=== PATIENT | female | born 1950 | race Caucasian/White ===

== ENCOUNTER 2017-10-29 09:31 | Inpatient (IN) | payer OTHER ==
[2017-10-26 14:03] VITALS: BMI 20.5
--- NOTE | 2017-10-29 07:06 | HP ---
Admitting History and Physical - Admission Chief Complaint: left hip osteoarthritis x years History of Present Illness: 66-year-old female presents in regard to her left hip. Patient has a long- standing history of osteoarthritis. Patient complains of pain, limited range of motion, difficulty ambulating, and difficulties with activities of daily living. Patient has failed conservative treatment options including PO medications, injections, activity modification and exercise program. As patient has failed conservative treatment measures, patient would like to proceed with surgical intervention, left total hip arthroplasty MAKOplasty. History Source: Patient - Past Surgical History Additional Past Surgical History: see written history and physical. - Smoking History Smoking history: Former smoker Have you smoked in the past 12 months: No Aproximately how many cigarettes per day: 20 If you are a former smoker, when did you quit?: 2007 - Alcohol/Substance Use Hx Alcohol Use: Yes (RECOVERY SINCE 05/18) Home Medications - Allergies Allergies/Adverse Reactions: Allergies Allergy/AdvReac Type Severity Reaction Status Date / Time codeine AdvReac Severe Nausea AND Verified 10/26/17 13:48 VOMITTING - Home Medications Home Medications: Ambulatory Orders NK [No Known Home Medication] 10/26/17 Review of Systems - Review of Systems Musculoskeletal: reports: Decreased ROM (left hip), Joint Pain (left hip) Physical Examination Constitutional: Yes: Well Nourished, No Distress Eyes: Yes: Conjunctiva Clear HENT: Yes: Atraumatic, Normocephalic Neck: Yes: Supple Cardiovascular: Yes: Regular Rate and Rhythm Respiratory: Yes: Regular Gastrointestinal: Yes: Soft ...Rectal Exam: Yes: Deferred Musculoskeletal: Yes: Joint Stiffness (left hip), Joint Swelling (left hip) Assessment/Plan 66-year-old female presents in regard to her left hip. Patient has a long- standing history of osteoarthritis. Patient complains of pain, limited range of motion, difficulty ambulating, and difficulties with activities of daily living. Patient has failed conservative treatment options including PO medications, injections, activity modification and exercise program. As patient has failed conservative treatment measures, patient would like to proceed with surgical intervention, left total hip arthroplasty MAKOplasty. pros, cons, risks , benefits and alternatives of a left total hip arthroplasty were discussed with the patient at length. Patient confirms her understanding, and consents to proceed with a left total hip arthroplasty, MAKOplasty.
[~2017-10-29 09:31] MED LIST: CEFAZOLIN 1 GM/D5W 1 GRAM/50 ML BAG IVPB ONE; ROPIVICAINE 0.2%/MORPH PF/KETOROLAC - 51ML DISP.SYRINGE IA ONE; TRANEXAMIC ACID 1000 MG/10 ML VIAL IVPUSH ONE
[2017-10-29] MEDS ORDERED: MIDAZOLAM HCL 2 MG/2 ML SINGLE DOSE VIAL ONE ×2 (09:50→12:39)
[2017-10-29] MEDS ORDERED: ROPIVACAINE HCL 0.5% 30ML VIAL ONE (09:50)
[2017-10-29] MEDS ORDERED: SODIUM CHLORIDE 0.9% P/F 10 ML VIAL IJ ONE ×2 (09:53→09:54)
[2017-10-29] MEDS: CELECOXIB 200 MG CAPSULE PO ONE ×2 (10:30→19:10)
[2017-10-29] MEDS: GABAPENTIN 300 MG CAPSULE (FP) PO ONE ×2 (10:30→19:10)
[2017-10-29] MEDS: oxyCODONE HCL 10 MG SUSTAINED ACTING TABLET PO ONE ×2 (10:30→19:10)
[2017-10-29] MEDS: PANTOPRAZOLE 40 MG TABLET (FP) PO ONE ×2 (10:31→19:12)
[2017-10-29] MEDS ORDERED: ceFAZolin SODIUM 1 GM VIAL ONE ×2 (10:37→11:55)
[2017-10-29] MEDS ORDERED: VANCOMYCIN 1,000 MG VIAL (RESTRICTED TO ID ONLY) ONE (10:39)
[2017-10-29] MEDS ORDERED: TRANEXAMIC ACID 1000 MG/10 ML VIAL ONE (11:55)
[2017-10-29] MEDS ORDERED: PROPOFOL 20 ML ONE (12:25)
[2017-10-29] MEDS ORDERED: TRANEXAMIC ACID 1000 MG/10 ML VIAL IVPB ONE (13:01)
[2017-10-29] MEDS ORDERED: VANCOMYCIN 1,000 MG VIAL (RESTRICTED TO ID ONLY) IVPB ONE (13:02)
[2017-10-29] MEDS ORDERED: ROPIVICAINE 0.2%/MORPH PF/KETOROLAC - 51ML DISP.SYRINGE IA ONE (13:03)
[2017-10-29] MEDS ORDERED: ePHEDrine SULFATE 50 MG/1 ML AMPULE ONE (13:08)
[2017-10-29] MEDS ORDERED: oxyCODONE HCL 5 MG TABLET PO PRN ×2 (15:39)
[2017-10-29] MEDS ORDERED: ONDANSETRON 4 MG/2 ML VIAL IVPUSH PRN (15:43)
[2017-10-29] MEDS ORDERED: PROMETHAZINE HCL 25 MG/1 ML VIAL IVPB PRN (15:44)
[2017-10-29] MEDS ORDERED: KETOROLAC TROMETHAMINE 30 MG/1 ML VIAL ONE (16:24)
[2017-10-29] MEDS ORDERED: ACETAMINOPHEN INJECTION 100 ML IVPB ONE (16:25)
[2017-10-29] MEDS ORDERED: traMADol HCL 50 MG TABLET ONE (16:25)
[2017-10-29] MEDS ORDERED: MAGNESIUM HYDROX 2400MG/30ML ORAL SUSPENSION 30 ML CUP PO PRN (16:26)
[2017-10-29] MEDS ORDERED: MAG HYDROX/AL HYDROX/SIMETH 30 ML UNIT-DOSE CUP PO PRN (16:26)
[2017-10-29] MEDS ORDERED: LACTATED RINGERS SOLUTION 1,000 ML IV SCH (16:30)
[2017-10-29] MEDS: traMADol HCL 50 MG TABLET PO SCH ×2 (16:35→23:35)
[2017-10-29] MEDS: KETOROLAC TROMETHAMINE 30 MG/1 ML VIAL IVPUSH SCH ×2 (16:35→23:34)
--- NOTE | 2017-10-29 16:36 | OP ---
Operative Note - Note: Operative Date: 10/29/17 Pre-Operative Diagnosis: Left hip OA Operation: left TEO CHINEDU Post-Operative Diagnosis: Same as Pre-op Surgeon: Carlos Burks Lane Marker Installer: Monika Potter Anesthesia: Spinal Estimated Blood Loss (mls): 200
[2017-10-29] MEDS ORDERED: ACETAMINOPHEN 1000 MG/100 ML VIAL (NON FORMULARY) IVPB ONE (16:45)
[2017-10-29] MEDS ORDERED: ceFAZolin SODIUM 1 GM VIAL IVPB ONE (18:00)
[2017-10-29] MEDS: CEFAZOLIN 1 GM/D5W 1 GM/50 ML BAG IVPB SCH (19:00)
--- NOTE | 2017-10-29 21:07 | SPEC ---
DATE OF OPERATION: 10/29/2017 PREOPERATIVE DIAGNOSIS: Left hip osteoarthritis. POSTOPERATIVE DIAGNOSIS: Left hip osteoarthritis. PROCEDURE: Left total hip replacement with MAKOplasty robotic navigation. ATTENDING: Shanel Gonzáles MD STEWARD/STEWARDESS TOURIST CLASS: BE[facility] Ernandez ANESTHESIA: Spinal plus sedation. ESTIMATED BLOOD LOSS: 200 mL COMPLICATIONS: None. DISPOSITION: The patient was transferred to the PACU in stable condition. IMPLANTS USED: Sindy Accolade II size 4 femoral component, Sindy Tritanium 48-mm acetabular component with acetabular screws and MDM liner and bipolar head ball. INDICATIONS: This is a 66-year-old female who presented to the office complaining of severe left hip pain. She was seen and examined by Dr. Gonzáles and diagnosed with severe left hip osteoarthritis. The patient was initially treated nonoperatively with injections, medications, and physical therapy but continued to have severe pain and ambulatory dysfunction. She was, therefore, indicated for a left total hip replacement with MAKOplasty robotic navigation. The risks, benefits, and alternatives to the procedure were explained to the patient in great detail, and she elected to proceed with the surgery. On the day of surgery, the patient was taken to the OR and placed on the OR table. Spinal anesthesia was administered by the anesthesiologist. The patient was then positioned in the lateral decubitus position on the table and all bony prominences were padded. An axillary roll was placed. The operative hip was then prepped and draped in the usual sterile fashion and intravenous antibiotics were given for infection prophylaxis. A surgical time-out was then performed with the team, and the patients identity, procedure, side, availability of implants, and the administration of antibiotics were confirmed. An approximately 15-cm longitudinal incision was made through the skin centered on the greater trochanter of the hip. This dissection was carried down through the subcutaneous tissues to the deep fascia. This fascia was then incised and a Cobra was placed around the inferior femoral neck. Electrocautery was used to reflect the anterior 40% of the gluteus medius and minimus starting at the musculotendinous junction and leaving a cuff for closure. This was reflected to reveal the capsule of the hip joint. An anterior capsulectomy was performed and the femoral head and neck were visualized. Grade 4 changes were noted diffusely throughout the joint. At this point, three small stab incisions were made superior to the main incision along the iliac crest. Three self-drilling Steinmann pins were then placed and the Darrion pelvic array was attached. Reference points on the limb were then entered into the robotic device and the limb length deficiency, offset, and femoral neck resection level were then calculated by the software. The hip was then dislocated with traction and external rotation. An oscillating saw was used to make the femoral neck cut at the level previously templated, and the femoral head was removed. Attention was then turned to the acetabulum. Retractors were then placed around the acetabulum and the labrum was removed. An acetabular checkpoint pin and the Wallerius software were used to register the contours of the acetabulum. The acetabulum was then reamed in a single stage to the preoperatively templated size using the Darrion robotic arm. The appropriately sized cup was then impacted and had solid fixation as well as the preset inclination and version of 40 and 20 degrees, respectively. A polyethylene liner was then placed in the cup. Attention was then turned back to the femur, which was externally rotated for improved visualization. A femoral neck elevator was used to present the femoral neck cut, a box osteotome was used to enter the femoral canal, and a canal finder was used to go down the femoral shaft. The Darrion broaches were used sequentially until the optimal scratch fit was achieved. This correlated with the preoperatively templated size. From here, several different offset head and neck configurations were tested until excellent stability and length were obtained. These measurements were quantified using the Wallerius software. All trial components were then removed, the femur was copiously irrigated, and the final components were placed. Leg length and stability were checked again and found to be excellent. Irrigation was performed again. Wound closure was started by repairing the abductor muscles with a no. 2 FiberWire stitch in a Krackow configuration passed through bone tunnels in the greater trochanter and tied over a bony bridge. This repair was then reinforced with a 0 V-Loc 180 barbed suture. Next, no. 1 Polysorb and 0 V-Loc 180 were used to close the fascia. The deep subcutaneous tissue was closed with no. 1 Polysorb sutures, and 2-0 Polysorb was used for the superficial subcutaneous tissue. The skin was closed using both 3-0 V-Loc 90 suture in a running subcuticular fashion and SwiftSet skin adhesive. The Darrion array and pins were removed from the iliac crest and the stab incision sites were irrigated and closed with 4-0 Polysorb sutures and SwiftSet skin adhesive. Once this was completed, a sterile dressing was applied. The patient was then awakened and taken to the PACU in stable condition. ADDENDUM: After final implants were placed, a 3-minute dilute Betadine lavage was performed according to the CHAPARRAL protocol. Following this, the wound was again thoroughly irrigated with normal saline and wound closure was begun. SHANEL GONZÁLES M.D. [id number]
[2017-10-29] MEDS: GABAPENTIN 300 MG CAPSULE (FP) PO SCH (21:28)
[2017-10-29] MEDS: CELECOXIB 200 MG CAPSULE PO SCH (21:29)
[2017-10-29] MEDS: ASCORBIC ACID 500 MG TABLET (FP) PO SCH (21:29)
[2017-10-29] MEDS: oxyCODONE HCL 10 MG SUSTAINED ACTING TABLET PO SCH (21:30)
[2017-10-29] MEDS: SENNOSIDES/DOCUSATE COMBO (SENNA PLUS) TABLET (UD) PO SCH (21:31)
[2017-10-29] MEDS ORDERED: GABAPENTIN 300 MG CAPSULE (FP) PO SCH (22:00)
[2017-10-30] MEDS: CEFAZOLIN 1 GM/D5W 1 GM/50 ML BAG IVPB SCH (01:20)
[2017-10-30] MEDS: KETOROLAC TROMETHAMINE 30 MG/1 ML VIAL IVPUSH SCH ×2 (05:30→09:30)
[2017-10-30] MEDS: traMADol HCL 50 MG TABLET PO SCH ×4 (05:30→23:22)
[2017-10-30] MEDS: ONDANSETRON 4 MG/2 ML VIAL IVPUSH PRN ×2 (06:18→09:29)
--- NOTE | 2017-10-30 07:22 | SURG ---
Surgery Solar Applications Development Engineer Note Solar Applications Development Engineer: Monika Potter PA-C Date of Service: 10/29/17 Diagnosis: Left hip OA Procedure: left TEO CHINEDU I was present for the entirety of the operative procedure. For further detail, please refer to operative report. Visit type - Case Type Case Type: Scheduled Admission - Emergency Emergency Visit: No - New patient This patient is new to me today: Yes Date on this admission: 10/29/17
[2017-10-30 08:28] LABS: ANION GAP 3 (8-16); BLOOD UREA NITROGEN 19 mg/dl (7-18); CALCIUM 8.5 mg/dl (8.4-10.2); CHLORIDE 102 mmol/L (98-107); CO2 26 mmol/L (22-28); GLUCOSE,RANDOM 116 mg/dl (74-106); POTASSIUM 4.8 mmol/L (3.5-5.1); SODIUM 131 mmol/L (136-145)
[2017-10-30] MEDS: ASPIRIN 325 MG TABLET PO SCH (08:34)
[2017-10-30 09:09] LABS: HEMATOCRIT 32.6 % (32.4-45.2); HEMOGLOBIN 11.8 GM/dl (10.7-15.3); MCH 34.2 pg (25.7-33.7); MCHC 36.2 g/dl (32.0-36.0); MEAN CELL VOLUME 94.6 fl (80-96); MEAN PLT VOLUME 9.2 fl (7.5-11.1); PLATELET COUNT 202 K/MM3 (134-434); RBC 3.45 M/mm3 (3.60-5.2); RDW 13.3 % (11.6-15.6)
[2017-10-30 09:21] LABS: WHITE BLOOD COUNT 9.7 K/mm3 (4.0-10.8)
[2017-10-30] MEDS ORDERED: ONDANSETRON 4 MG/2 ML VIAL IVPUSH PRN (09:24)
[2017-10-30] MEDS: MULTIVITAMINS (DAILY MVI) TABLET (FP) PO SCH (09:29)
[2017-10-30] MEDS: GABAPENTIN 300 MG CAPSULE (FP) PO SCH ×2 (09:30→21:10)
[2017-10-30] MEDS: CELECOXIB 200 MG CAPSULE PO SCH ×2 (09:30→21:10)
[2017-10-30] MEDS: ASCORBIC ACID 500 MG TABLET (FP) PO SCH ×2 (09:30→21:09)
[2017-10-30] MEDS: PANTOPRAZOLE 40 MG TABLET (FP) PO SCH (09:30)
[2017-10-30] MEDS: SENNOSIDES/DOCUSATE COMBO (SENNA PLUS) TABLET (UD) PO SCH ×2 (09:30→21:09)
[2017-10-30] MEDS: oxyCODONE HCL 10 MG SUSTAINED ACTING TABLET PO SCH ×2 (09:30→21:09)
[2017-10-30] MEDS ORDERED: METOCLOPRAMIDE HCL INJECTION 10 MG/2 ML VIAL IVPUSH ONE (09:50)
[2017-10-30] MEDS ORDERED: DEXAMETHASONE SOD PHOSPHATE 10 MG/1 ML VIAL IVPB ONE (12:00)
[2017-10-31] MEDS: ONDANSETRON 4 MG/2 ML VIAL IVPUSH PRN (05:40)
[2017-10-31] MEDS: traMADol HCL 50 MG TABLET PO SCH ×2 (05:40→11:50)
[2017-10-31 06:36] VITALS: BP 128/89; PULSE 99; TEMP 98.5
[2017-10-31 08:12] LABS: HEMOGLOBIN 10.7 GM/dl (10.7-15.3); MCH 31.6 pg (25.7-33.7); MCHC 33.5 g/dl (32.0-36.0); MEAN CELL VOLUME 94.5 fl (80-96); MEAN PLT VOLUME 9.6 fl (7.5-11.1); PLATELET COUNT 210 K/MM3 (134-434); RBC 3.39 M/mm3 (3.60-5.2); RDW 13.5 % (11.6-15.6); WHITE BLOOD COUNT 10.4 K/mm3 (4.0-10.8)
[2017-10-31] MEDS: ASPIRIN 325 MG TABLET PO SCH (08:49)
--- NOTE | 2017-10-31 09:05 | PN ---
Progress Note (short form) - Note Progress Note: Pt seen and examined last night. Doing well. AVSS Laboratory Tests 10/30/17 10/30/17 10/31/17 07:50 07:50 07:17 WBC 9.7 10.4 Hgb 11.8 10.7 Hct 32.6 32.0 L Plt Count 202 210 Sodium 131 L Potassium 4.8 Chloride 102 Carbon Dioxide 26 Anion Gap 3 L BUN 19 H Creatinine 1.0 Random Glucose 116 H Calcium 8.5 Selected Entries 10/30/17 10/30/17 10/31/17 19:39 21:17 06:00 Temperature 98.0 F 98.5 F Pulse Rate 83 99 H Respiratory 20 18 Rate Blood Pressure 123/79 128/89 O2 Sat by Pulse 96 94 L Oximetry (%) Oxygen Delivery Room Air Room Air Method 10/31/17 07:58 Temperature Pulse Rate Respiratory Rate Blood Pressure O2 Sat by Pulse 95 Oximetry (%) Oxygen Delivery Room Air Method Gen: NAD LLE: c/d/i, NVID A/P s/p L CHINEDU Doing well PT/OOB D/C Sunday after PT; f/u in office in 10-14 days
--- NOTE | 2017-10-31 09:12 | DS ---
Physical Examination Vital Signs: Vital Signs Temperature 98.5 F 10/31/17 06:00 Pulse Rate 99 H 10/31/17 06:00 Respiratory Rate 18 10/31/17 06:00 Blood Pressure 128/89 10/31/17 06:00 O2 Sat by Pulse Oximetry (%) 95 10/31/17 07:58 Labs: CBC, BMP 10/31/17 07:17 10/30/17 07:50 Discharge Summary Reason For Visit: LEFT HIP OSTEOARTHRITIS Current Active Problems Osteoarthritis of left hip (Acute) Procedures: Principal: left teri amparo Hospital Course: Admitted for elective surgery. Procedure performed without complications. Pt received postoperative antibiotic prophylaxis and DVT ppx. Ambulated with physical therapy. Stable for discharge home with outpatient followup. Condition: Stable - Instructions Diet, Activity, Other Instructions: Dr Burks - Hip Replacement Instructions Keep the Aquacel dressing on until removed by Dr. Burks in 10-14 days - it is antibacterial and waterproof and you can shower with it on. Call the office for a follow-up appointment with Dr. Burks in 10-14 days. Take one Aspirin 325mg daily for 6 weeks to prevent blood clots in your legs. Take one Pantoprazole 40mg daily for 6 weeks to protect against heartburn and ulcers. Take Celebrex 200mg twice daily for 30 days to reduce swelling and inflammation. Take Cephalexin (antibiotic) 3x/day for 10 days to help prevent skin infection. Take a multivitamin, stool softener, and extra vitamin C supplement daily. For pain: *Mild pain (1-3/10): Take 1 Tramadol tablet every 4 hours as needed. Moderate pain (4-6/10): Take 1 Tramadol tablet and 1 Percocet tablet every 4 hours as needed. Severe pain (7-10/10): Take 1 Tramadol tablet and 2 Percocet tablets every 4 hours as needed. Activity: You can put as much weight on the operative leg as you want. For the first 6 weeks, all you need to do is walk around the house, go up/down stairs, and sit down/get up. After 6 weeks when everything is healed (and bone has grown into the implant) you will be sent for more intensive outpatient physical therapy. Always use a walker or cane for balance and to prevent falls. Expect to see swelling/bruising from the hip all the way down to your toes. Wear the compression stocking on the operative side during the day to minimize how much swelling there is in your foot/ankle. Don't wear the stocking at night. You don't have to wear a stocking on the other side. Disposition: [facility]/HOME HEALTH CARE - Home Medications Comprehensive Discharge Medication List: Ambulatory Orders Ascorbic Acid [Vitamin C -] 500 mg PO BID tablet 10/31/17 Aspirin [ASA -] 325 mg PO DAILY@0800 tablet 10/31/17 Celecoxib [CeleBREX -] 200 mg PO BID #60 capsule 10/31/17 Cephalexin Monohydrate [Keflex -] 500 mg PO TID #30 capsule 10/31/17 Multivitamins [Multivit ([facility] Formul[facility])] 1 tab PO DAILY tab 10/31/17 Oxycodone HCl/Acetaminophen [Percocet 5-325 mg Tablet] 1 - 2 tab PO Q4H PRN #60 tablet MDD 8 10/31/17 Pantoprazole Sodium [Protonix -] 40 mg PO DAILY #40 tablet.ec 10/31/17 Sennosides/Docusate Sodium [Pericolace -] 2 tablet PO BID tablet 10/31/17 traMADol HCL [Ultram -] 50 mg PO Q4H PRN #90 tablet MDD 6 10/31/17
[2017-10-31] MEDS: CELECOXIB 200 MG CAPSULE PO SCH (09:48)
[2017-10-31] MEDS: ASCORBIC ACID 500 MG TABLET (FP) PO SCH (09:48)
[2017-10-31] MEDS: PANTOPRAZOLE 40 MG TABLET (FP) PO SCH (09:49)
[2017-10-31] MEDS: MULTIVITAMINS (DAILY MVI) TABLET (FP) PO SCH (09:49)
[2017-10-31] MEDS: SENNOSIDES/DOCUSATE COMBO (SENNA PLUS) TABLET (UD) PO SCH (09:49)
[2017-10-31] MEDS: GABAPENTIN 300 MG CAPSULE (FP) PO SCH (09:50)
[2017-10-31] MEDS: oxyCODONE HCL 10 MG SUSTAINED ACTING TABLET PO SCH (09:50)
== END 2017-10-31 12:20 | disposition home health service (06) | DRG 301 ==
LOC: FM/S 09:31
PROVIDERS: ADMIT Student in an Organized Health Care Education/Training Program; ATTEND Student in an Organized Health Care Education/Training Program
PROC: 8E0W0CZ Robotic Assisted Procedure of Trunk Region, Open Approach (ICD-10-PCS; 2017-10-29)
PROC: 0SRB0JZ Replacement of Left Hip Joint with Synthetic Substitute, Open Approach (ICD-10-PCS; principal; 2017-10-29 12:52)
DX: M16.12 Unilateral primary osteoarthritis, left hip (principal); Z87.891 Personal history of nicotine dependence
CPT/HCPCS: 36415; 73502-TC-LT-FY; 80048; 85027; 87389; 94760; 97116-GP; 97161-GP; J0131